=== PATIENT | female | born 1960 | race Caucasian/White ===

== ENCOUNTER 2019-02-13 15:30 | Emergency (ER) | payer MEDICARE, MEDICAID, SELFPAY ==
[2019-02-13 15:36] VITALS: BP 129/75; PULSE 100; RESP 16; TEMP 37.3; O2SAT 99; BMI 24.7
--- NOTE | 2019-02-13 15:42 | DI.RAD.S_ITS ---
PROCEDURE: XR HAND RT MIN 3V INDICATIONS: pain and swelling right hand. Pin in third digit TECHNIQUE: 3 views of the hand(s) acquired. COMPARISON: None. FINDINGS: Bones: Surgical pin traversing the third distal interphalangeal joint is seen with near complete bony fusion at the joint. Osteoarthritic changes are noted throughout right hand and wrist. No gross acute fracture or dislocation. No gross hardware loosening or failure. No gross bony erosive changes. Carpal bones are normally aligned. No suspicious bony lesions. Soft tissues: No suspicious soft tissue calcifications. IMPRESSION: Prior fusion of the third DIP joint. No gross hardware complication. Moderate osteoarthritic changes throughout right hand and wrist. No gross bony erosive changes. No gross acute fracture or dislocation. Dictated by: John Araujo M.D. on 02/13/2019 at 16:02 Approved by: John Araujo M.D. on 02/13/2019 at 16:03
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
[2019-02-13 18:30] VITALS: BP 122/87; PULSE 83; RESP 18; O2SAT 100
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
== END 2019-02-13 18:41 | disposition home or self-care (01) ==
PROVIDERS: Emergency Provider Nurse Practitioner Family
DX: L03.011 Cellulitis of right finger (principal)
CPT/HCPCS: 73130; 99282; 99283

== ENCOUNTER 2019-04-20 20:15 | Emergency (ER) | payer MEDICARE, MEDICAID, SELFPAY ==
[2019-04-20 20:19] VITALS: BP 141/88; PULSE 99; RESP 20; TEMP 36.6; O2SAT 99
--- NOTE | 2019-04-20 21:49 | ED.BACK ---
HPI - Back Pain/Injury General Chief Complaint: Back Pain/Injury Stated Complaint: LOWER BACK PAIN Time Seen by Provider: 04/20/19 21:23 Source: patient Mode of arrival: Ambulatory Limitations: no limitations History of Present Illness HPI Narrative: 58-year-old female here for evaluation of left-sided lower back pain with sciatic. She states that the symptoms have been going on for 8 months now. She has been taking Tylenol and ibuprofen. She has seen her primary doctor. Has had an MRI however has not seen a autism motor specialist up to this point. She is in the area visiting her family. She states that she has pain every day but that the pain sometimes spikes and that is what is happening today. She is unsure where to go next. States that her primary doctor has been unwilling to provide any referral to see a specialist. Related Data Previous Rx's Medication Instructions Recorded hydrocodone-acetaminophen [[place]] 1 tab PO Q6H PRN #10 tab 04/20/19 meloxicam [Mobic] 7.5 mg PO DAILY PRN #30 tab 04/20/19 prednisone 40 mg PO DAILY 7 Days #14 tab 04/20/19 Allergies Allergy/AdvReac Type Severity Reaction Status Date / Time Sulfa (Sulfonamide Allergy Severe Hives Verified 02/13/19 15:42 Antibiotics) Review of Systems Constitutional Constitutional: Denies fever(s) and Denies headache(s) ENT Ears, Nose, Mouth, and Throat: Denies headache(s) Cardiovascular Cardiovascular: Denies chest pain and Denies dyspnea Respiratory Respiratory: Denies cough and Denies dyspnea Gastrointestinal Gastrointestinal: Denies abdominal pain, Denies nausea and Denies vomiting Genitourinary Genitourinary: Denies urinary frequency, Denies difficulty voiding, Denies dysuria, Denies urinary incontinence, Denies urinary hesitancy and Denies urinary urgency Musculoskeletal Musculoskeletal: Reports back pain, Denies myalgias, Denies arthralgias, Reports numbness and Reports tingling Integumentary/Breasts Skin/Breast: Denies lesions and Denies rash Neurologic Neurologic: Denies behavioral changes, Denies headache(s), Reports numbness, Reports tingling and Reports paresthesias Psychiatric Psychiatric: Denies behavioral changes Hematologic/Lymphatic Hematologic/Lymphatic: Denies easy bleeding and Denies easy bruising [facility] Medical History Chronic low back pain (Inactive) Surgical History (Updated 02/13/19 @ 18:30 by ERROL Kilpatrick) History of hand surgery (Acute) Social History Smoking Status: Current every day smoker Social History Smoking Status: Current every day smoker Exam Initial Vital Signs Initial Vital Signs: Vital Signs Temperature 97.8 F 04/20/19 20:19 Pulse Rate 99 H 04/20/19 20:19 Respiratory Rate 20 04/20/19 20:19 Blood Pressure 141/88 H 04/20/19 20:19 Pulse Oximetry 99 04/20/19 20:19 HENMT Head: normal to inspection and normocephalic Resp Effort & Inspection: normal respiratory effort Cardio Rate: regular rate Skin Lesions: no lesions Rashes: no rashes Neuro General: alert and awake Cognition: normal cognition Speech: speech normal Extrem General: normal to inspection Psych Appearance: grossly normal and well kempt Course Orders Ordered: Discontinued Medications Hydromorphone HCl (Dilaudid) 1 mg IM NOW ONE Stop: 04/20/19 21:49 Last Admin: 04/20/19 21:59 Dose: 1 mg Documented by: NARESH Ketorolac Tromethamine (Toradol) 30 mg IM NOW ONE Stop: 04/20/19 21:49 Last Admin: 04/20/19 21:58 Dose: 30 mg Documented by: NARESH Vital Signs Vital signs: Vital Signs - 8 hr 04/20/19 20:19 04/20/19 22:25 Temperature 97.8 F Pulse Rate 99 H 101 H Respiratory Rate 20 18 Blood Pressure 141/88 H 157/100 H Pulse Oximetry 99 94 MDM - Back Pain/Injury MDM Narrative Medical decision making narrative: Low suspicion for cauda equina. Symptoms been going on for the past 8 months. Low suspicion for fractures. Has had an MRI prior to this. No indication for radiologic studies here in the ER. Will send home with symptom treatment. She was given the phone number for local Orthopedic group. Informed her that she may need to have a referral before they can see her. We discussed return precautions and follow-up instructions. She expressed understanding and agreement with plan. Discharge Plan Departure Patient Disposition: Home Clinical Impression: Chronic low back pain Qualifiers: Back pain laterality: left Sciatica presence: with sciatica Sciatica laterality: sciatica of left side Qualified Code(s): M54.42 - Lumbago with sciatica, left side Discharge Date/Time: 04/20/19 22:26 Instructions: Back Pain (Alternative Therapy), DI for Back Pain With Sciatica, Activity May Be Better then Rest for Low Back Pain Recovery Activity Restrictions/Additional Instructions: Recommend you contact your primary care provider for a follow up to discuss further referals. You can contact the [facility] at [phone]. Take the medications as directed. Return to the ER for any new or worsening symptoms. Prescriptions: New meloxicam [Mobic] 7.5 mg tablet 7.5 mg PO DAILY PRN (Reason: pain (scale score 1-3)) Qty: 30 RF: 0 prednisone 20 mg tablet 40 mg PO DAILY 7 Days Qty: 14 RF: 0 hydrocodone-acetaminophen [[place]] 5-325 mg tablet 1 tab PO Q6H PRN (Reason: pain) Qty: 10 RF: 0
[2019-04-20] MEDS: KETOROLAC 60 MG/2 ML VIAL 30 MG IM (21:58)
[2019-04-20] MEDS: HYDROMORPHONE 1 MG INJ IM (21:59)
[2019-04-20 22:25] VITALS: BP 157/100; PULSE 101; RESP 18; O2SAT 94
== END 2019-04-20 22:26 | disposition home or self-care (01) ==
PROVIDERS: Emergency Provider Emergency Medicine
DX: M54.42 Lumbago with sciatica, left side (principal)
CPT/HCPCS: 96372; 99282; 99283; J1170; J1885

== ENCOUNTER 2019-05-26 12:52 | Emergency (ER) | payer MEDICARE, MEDICAID, SELFPAY ==
[2019-05-26 13:02] VITALS: BP 156/86; PULSE 95; RESP 16; TEMP 36.7; O2SAT 100; BMI 25.7
--- NOTE | 2019-05-26 13:29 | ED.BACK ---
HPI - Back Pain/Injury <DALE CaryP - Last Filed: 05/26/19 15:50> General Chief Complaint: Back Pain/Injury Stated Complaint: back pain Time Seen by Provider: 05/26/19 12:59 Source: patient Mode of arrival: Ambulatory Limitations: no limitations History of Present Illness HPI Narrative: This is a 58-year-old female, smoker, who presents to ED with recurring low back pain radiate is to left lower back down to posterior knee. Patient denies fever, chills, nausea, vomiting, rash, saddle anesthesia, incontinence, weakness to lower legs. Patient has been ambulating with leaning forward stature due to severe pain. Patient has diagnosed with degenerative joint disease in her back for about 9 months but having severe recurring pain for last few days. Patient is waiting to be seen by public information specialist at this time. She had MRI test done in the past. Patient states in the past prednisone worked very well for her for similar pain. Patient has been using Tylenol and ibuprofen at home to cope with pain. Patient denies any urinary symptoms or hematuria. Related Data Previous Rx's Medication Instructions Recorded hydrocodone-acetaminophen [[place]] 1 tab PO Q6H PRN #10 tab 04/20/19 meloxicam [Mobic] 7.5 mg PO DAILY PRN #30 tab 04/20/19 lidocaine 1 patch TOP DAILY #15 each 05/26/19 prednisone 40 mg PO DAILY 5 Days tab 05/26/19 Allergies Allergy/AdvReac Type Severity Reaction Status Date / Time Sulfa (Sulfonamide Allergy Severe Hives Verified 05/26/19 13:02 Antibiotics) Review of Systems <GONZÁLEZ Cary - Last Filed: 05/26/19 15:50> Review of Systems Narrative: General: Denies fever, chills, fatigue, malaise, sweats. HEENT: Denies sinus pain, ear pain, sore throat, difficulty swallowing, dizziness. Respiratory: Denies dyspnea, cough, wheezing, hemoptysis, sputum. Cardiovascular: Denies chest pain, palpitations, orthopnea, edema. Gastrointestinal: Denies nausea, vomiting, abdominal pain, diarrhea, constipation, melena. : Denies dysuria, frequency, incontinence, hematuria, urinary retention. Musculoskeletal: See HPI Skin: Denies rash, skin lesions, or other. Neurologic: Denies weakness, headache, numbness, change in speech, confusion, seizures, incoordination. Psychiatric: No concerning psychosocial issues. 12-point review of systems is negative except for those stated above. Patient History <GONZÁLEZ Cary - Last Filed: 05/26/19 15:50> Medical History Chronic low back pain (Inactive) Surgical History History of hand surgery (Acute) Social History Smoking Status: Current every day smoker Substance Use Type: marijuana Exam <GONZÁLEZ Cary - Last Filed: 05/26/19 15:50> Narrative Exam Narrative: General appearance: well developed, well nourished, in no acute distress. Head: normocephalic, atraumatic, no scalp lesions, non-tender. Eye: pupil equal, round. EOMI. Nose: nares patent. Oral: mucosa moist. Neck/Thyroid: neck supple, full range of motion, no visible masses. Skin: no suspicious rashes, lesions over visible areas. Warm and dry. Heart: no clubbing, no cyanosis, no edema. Lungs: Breathing even and unlabored. No stridor. No accessory muscles used. Chest: normal shape and expansion. Abdomen: non-obese, non-distended. Neurologic: alert and oriented. Cognitive exam, SECURITIES RESEARCH ANALYST and PNS grossly intact on informal exam. Psych: good eye contact, normal affect. Initial Vital Signs Initial Vital Signs: Vital Signs Temperature 98.0 F 05/26/19 13:02 Pulse Rate 95 H 05/26/19 13:02 Respiratory Rate 16 05/26/19 13:02 Blood Pressure 156/86 H 05/26/19 13:02 Pulse Oximetry 100 05/26/19 13:02 Back/Spine/Pelvis Sacroiliac Joints: tender to palpation, No pain elicited by compression of iliac crest maneuver and No pain elicited by passive hyperextension of lower extremity Sacrum: no ecchymosis, no erythema, no swelling and tenderness Coccyx: no swelling and no tenderness <Aguilar Petit DO - Last Filed: 05/26/19 16:14> Initial Vital Signs Initial Vital Signs: Vital Signs Temperature 98.0 F 05/26/19 13:02 Pulse Rate 95 H 05/26/19 13:02 Respiratory Rate 16 05/26/19 13:02 Blood Pressure 156/86 H 05/26/19 13:02 Pulse Oximetry 100 05/26/19 13:02 Course <GONZÁLEZ Cary - Last Filed: 05/26/19 15:50> Orders Ordered: Discontinued Medications Ketorolac Tromethamine (Toradol) 30 mg IM NOW ONE Stop: 05/26/19 13:26 Last Admin: 05/26/19 13:31 Dose: 30 mg Documented by: ERMIAS Lidocaine (Lidoderm) 1 each TOP NOW ONE Stop: 05/26/19 13:26 Last Admin: 05/26/19 13:33 Dose: 1 each Documented by: ERMIAS Prednisone (Deltasone) 40 mg PO NOW ONE Stop: 05/26/19 13:26 Last Admin: 05/26/19 13:32 Dose: 40 mg Documented by: ERIMAS Vital Signs Vital signs: Vital Signs - 8 hr 05/26/19 13:02 05/26/19 14:06 Temperature 98.0 F Pulse Rate 95 H 68 Respiratory Rate 16 18 Blood Pressure 156/86 H Blood Pressure [Left Arm] 161/81 H Pulse Oximetry 100 97 <Aguilar Petit DO - Last Filed: 05/26/19 16:14> Orders Ordered: Discontinued Medications Ketorolac Tromethamine (Toradol) 30 mg IM NOW ONE Stop: 05/26/19 13:26 Last Admin: 05/26/19 13:31 Dose: 30 mg Documented by: ERMIAS Lidocaine (Lidoderm) 1 each TOP NOW ONE Stop: 05/26/19 13:26 Last Admin: 05/26/19 13:33 Dose: 1 each Documented by: ERMIAS Prednisone (Deltasone) 40 mg PO NOW ONE Stop: 05/26/19 13:26 Last Admin: 05/26/19 13:32 Dose: 40 mg Documented by: ERMIAS Vital Signs Vital signs: Vital Signs - 8 hr 05/26/19 13:02 05/26/19 14:06 Temperature 98.0 F Pulse Rate 95 H 68 Respiratory Rate 16 18 Blood Pressure 156/86 H Blood Pressure [Left Arm] 161/81 H Pulse Oximetry 100 97 MDM - Back Pain/Injury <DALE CaryP - Last Filed: 05/26/19 15:50> Differential Diagnosis Differential diagnosis: Likely sciatica Medical Records Attestation: I reviewed the patient's medical records. Lab Data Attestation: I reviewed the patient's lab results. Labs: Urine Dip Bedside Urine Glucose Negative Bedside Urine Bilirubin - Negative Bedside Urine Ketone - Negative Urine Specific Clear 1.010 Bedside Urine Occult Blood - Negative Bedside Urine pH 7.0 Bedside Urine Protein - Negative Bedside Urine Urobilinogen - Negative Bedside Urine Nitrite - Negative Bedside Urine Leukocytes - Negative Esterase MDM Narrative Medical decision making narrative: This is a 58-year-old female presents to ED with chronic sciatica pain on her left low back with increasing pain for last several days. Patient has tried Tylenol and Motrin at home without much relief. Bilateral leg strength and sensation are equally intact. No bowel or bladder incontinence problems. No rashes noted on affected side. Patient does not have constitutional symptoms. Urine test does not indicate infection. Patient was medicated with IM Toradol, lidocaine patch and prednisone in ED. Patient reports pain has improved after the medications and discharged to home with lidocaine patch and prednisone for 5 days. Patient advised to follow up with a public information specialist as scheduled. Return precautions were discussed patient and patient verbalized understanding and agrees with the treatment plan. <Aguilar Petit DO - Last Filed: 05/26/19 16:14> Lab Data Labs: Urine Dip Bedside Urine Glucose Negative Bedside Urine Bilirubin - Negative Bedside Urine Ketone - Negative Urine Specific Clear 1.010 Bedside Urine Occult Blood - Negative Bedside Urine pH 7.0 Bedside Urine Protein - Negative Bedside Urine Urobilinogen - Negative Bedside Urine Nitrite - Negative Bedside Urine Leukocytes - Negative Esterase Discharge Plan Departure Patient Disposition: Home Clinical Impression: Sciatica Qualifiers: Laterality: left Qualified Code(s): M54.32 - Sciatica, left side Discharge Date/Time: 05/26/19 14:36 Instructions: DI for Sciatica Activity Restrictions/Additional Instructions: You have been diagnosed with [sciatica. You were treated with prednisone, Ketolac injection and Lidocaine patch in ED for your back pain.]. What to do: *Take your medications as directed. Please continue to take prednisone for next 5 days once a day. You can continue to take Tylenol up to 4000 mg in 24 hr period and Ibuprofen 400-600 mg three times a day with food for pain. Lidocaine patch stays on for 12 and off for 12 hours for pain. Try to take prednisone during day to avoid interfering with sleep and take it with food. *Follow up with your primary care provider in 2-3 days at [facility], call for an appointment. Please keep your appointment with public information specialist as scheduled. Let them know you were seen in the ED and that we asked you to be seen in follow up. *Return to ED if you have any new, worsening, or concerning symptoms, such as [fever, rash on the back, chest pain, breathing difficulty, unable to tolerate fluids, incontinence, weakness to her legs, numbness to her groin or any acute concerns]. Prescriptions: New lidocaine 5 % adhesive patch,medicated 1 patch TOP DAILY Qty: 15 RF: 0 prednisone 20 mg tablet 40 mg PO DAILY 5 Days RF: 0 No Action meloxicam [Mobic] 7.5 mg tablet 7.5 mg PO DAILY PRN (Reason: pain (scale score 1-3)) Qty: 30 RF: 0 hydrocodone-acetaminophen [[place]] 5-325 mg tablet 1 tab PO Q6H PRN (Reason: pain) Qty: 10 RF: 0 <Aguilar Petit, DO - Last Filed: 05/26/19 16:14> Sign Out Provider Sign Out Attestation: Dr Petit Co-Sign Statement: I was available for consultation during this patient's emergency department visit. This chart is signed by myself for administrative purposes only. I did not have direct contact with this patient during this visit. They were seen independently by the APC.
[2019-05-26] MEDS: KETOROLAC 60 MG/2 ML VIAL 30 MG IM (13:31)
[2019-05-26] MEDS: predniSONE 20 MG TABLET 40 MG PO (13:32)
[2019-05-26] MEDS: LIDOCAINE PATCH 1 EACH ADH..PATCH TOP (13:33)
[2019-05-26 14:06] VITALS: BP 161/81; PULSE 68; RESP 18; O2SAT 97
== END 2019-05-26 14:36 | disposition home or self-care (01) ==
PROVIDERS: Emergency Provider Nurse Practitioner Family
DX: M54.32 Sciatica, left side (principal)
CPT/HCPCS: 81003; 96372; 99282; 99283; J1885

== ENCOUNTER 2019-07-31 16:53 | Emergency (ER) | payer MEDICARE, MEDICAID, SELFPAY ==
[2019-07-31 17:27] VITALS: BP 145/93; PULSE 92; RESP 22; TEMP 36.6; O2SAT 98; BMI 25.6
[2019-07-31 19:36] VITALS: BP 132/89; PULSE 78; RESP 15; O2SAT 97
[2019-07-31] MEDS: LIDOCAINE PATCH 1 EACH ADH..PATCH TOP (19:57)
[2019-07-31] MEDS: predniSONE 20 MG TABLET 40 MG PO (19:57)
[2019-07-31] MEDS: KETOROLAC 60 MG/2 ML VIAL 30 MG IM (19:57)
[2019-07-31] MEDS: HYDROCODONE/ACET 5/325 TABLET 2 TAB PO (20:44)
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
[2019-07-31] MEDS: HYDROCODONE/ACET 5/325 PREPACK 1 BOTTLE MISC (21:29)
[2019-07-31 21:34] VITALS: BP 129/71; PULSE 77; RESP 16; O2SAT 96
== END 2019-07-31 21:34 | disposition home or self-care (01) ==
PROVIDERS: Emergency Provider Nurse Practitioner Family; PCP Family Medicine
DX: M54.42 Lumbago with sciatica, left side (principal); M54.41 Lumbago with sciatica, right side
CPT/HCPCS: 96372; 99283; J1885

== ENCOUNTER → 2019-08-19 10:51 | Outpatient (CLI) | payer MEDICARE, MEDICAID, SELFPAY ==
--- NOTE | 2019-08-19 10:54 | DI.RAD.S_ITS ---
PROCEDURE: XR LUMBAR SPINE 6V W BENDING INDICATIONS: Progressive low back pain and coccydynia TECHNIQUE: 6 views of the lumbar spine acquired. COMPARISON: [facility], CT, CT ABD PELVIS W CON, 07/24/2016, 11:48. Outside Facility, RG, XR L-SPINE 4-6V, 04/07/2018, 18:40. FINDINGS: Bones: 5 nonrib-bearing vertebrae are present. There is mild levoscoliotic bony alignment. No vertebral body compression fractures. No suspicious bony lesions. Chronic moderate degenerative changes have slightly progressed from 2018. Soft tissues: Overlying bowel gas pattern is normal. No suspicious soft tissue calcifications. Flexion/extension: There is normal range of motion, with preserved normal alignment. IMPRESSION: No trauma. Moderate degenerative changes that have only slightly worsened from 2018. Dictated by: Chuy Metcalf M.D. on 08/19/2019 at 13:38 Approved by: Chuy Metcalf M.D. on 08/20/2019 at 12:13
== END ==
PROVIDERS: PCP Family Medicine; Visit Provider Physical Medicine & Rehabilitation
DX: M54.5 Low back pain (principal); M53.3 Sacrococcygeal disorders, not elsewhere classified; M47.27 Other spondylosis with radiculopathy, lumbosacral region; M48.061 Spinal stenosis, lumbar region without neurogenic claudication; F32.9 Major depressive disorder, single episode, unspecified; Z87.828 Personal history of other (healed) physical injury and trauma
CPT/HCPCS: 72114; 99213

== ENCOUNTER 2019-09-03 15:21 | Inpatient (IN) | payer MEDICARE, MEDICAID, SELFPAY ==
[2019-09-03 15:26] VITALS: BP 148/89; PULSE 106; RESP 18; TEMP 36.7; O2SAT 98; BMI 28.3
--- NOTE | 2019-09-03 15:45 | DI.RAD.S_ITS ---
PROCEDURE: XR FINGER RT MIN 2V INDICATIONS: 3rd finger abscess draining, hx surgery with pins TECHNIQUE: AP hand, 2 views of the third finger(s) acquired. COMPARISON: [facility], CR, XR HAND RT MIN 3V, 02/13/2019, 15:43. FINDINGS: Bones: Metallic orthopedic pin noted in the third distal and middle phalanges placed for third DIP joint fusion.. There is slight lucency adjacent to the metallic orthopedic pin in the distal phalange in the proximal aspect of the middle phalange most compatible with osteomyelitis. Soft tissues: No suspicious soft tissue calcifications. Soft tissue swelling of the third digit compatible with reported infectious cellulitis. IMPRESSION: Third distal and middle phalange osteomyelitis. Dictated by: Angelique Germain MD, PhD on 09/03/2019 at 16:06 Approved by: Angelique Germain MD, PhD on 09/03/2019 at 16:08
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
[2019-09-03] MEDS: ONDANSETRON 4 MG/2 ML INJ IV (16:45)
[2019-09-03] MEDS: SODIUM CHLORIDE 0.9% 1,000 ML 1000 ML IV (16:46)
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
[2019-09-03] MEDS: CEFTRIAXONE 2 GM/50 ML FROZ.PIGGY IV (17:24)
[2019-09-03 17:25] LABS: Add Manual Diff / Slide Review NO; Basophils Absolute Auto 0 /uL (0-100); Basophils Percent Auto 0.7 % (0-2); Eosinophils Absolute Auto 300 /uL (0-450); Hematocrit 37.2 % (36-46); Hemoglobin 12.5 g/dL (12.0-16.0); Lymphocytes Absolute Auto 2400 /uL (1100-4500); Lymphocytes Percent Auto 36.4 % (25-40); Mean Corpuscular HGB Conc 33.7 % (30-36); Monocytes Absolute Auto 400 /uL (0-900); Monocytes Percent Auto 6.4 % (3-14); Neutrophils Absolute Auto 3500 /uL (1500-7000); Neutrophils Percent Auto 52.5 % (50-75); Platelet Count 182 X10^3/uL (150-400); Red Blood Cell Count 4.33 X10^6/uL (4.0-5.2); Red Cell Distribution Width 15.7 % (11.6-14.8); White Blood Cell Count 6.7 X10^3/uL (4.5-11.0)
[2019-09-03 17:42] LABS: BUN Creatinine Ratio 18.9 (6-22); Blood Urea Nitrogen 17 mg/dL (7-17); C-Reactive Protein Quant < 0.5 mg/dL (<1.0); Calcium 9.3 mg/dL (8.4-10.2); Carbon Dioxide 22 mmol/L (22-32); Chloride 109 mmol/L (98-107); Estimated Glomerular Filt Rate > 60.0 mL/min (>60); Glucose 96 mg/dL (80-110); HEMOLYSIS 35 (0-50); Potassium 4.2 mmol/L (3.4-5.1); Sodium 140 mmol/L (137-145)
[2019-09-03 17:48] LABS: Erythrocyte Sedimentation Rate 21 MM/HR (0-20)
[2019-09-03 17:51] VITALS: BP 133/79; PULSE 76; RESP 16; O2SAT 99
[2019-09-03 18:15] VITALS: BP 148/90; PULSE 84; RESP 16; TEMP 37.1; O2SAT 97
[2019-09-03 19:07] VITALS: BMI 28.3
[2019-09-03] MEDS: HYDROCODONE/ACET 5/325 TABLET 2 TAB PO (19:30)
[2019-09-03] MEDS: LORazepam 0.5 MG TABLET PO (19:34)
[2019-09-03 20:15] VITALS: BP 110/57; PULSE 81; RESP 17; TEMP 36.4; O2SAT 98
[2019-09-03] MEDS: PREGABALIN 75 MG CAPSULE 300 MG PO (20:31)
[2019-09-03] MEDS: VANCOMYCIN 1,000 MG/200 ML PIGGYBACK 200 MG IV (20:32)
[2019-09-03] MEDS: DOCUSATE 100 MG CAPSULE PO (20:32)
[2019-09-03] MEDS: LACTATED RINGERS 1,000 ML 125 ML IV (20:33)
[2019-09-04] VITALS (21 sets, daily range): BP systolic 115–203; BP diastolic 52–109; PULSE 63–89; RESP 10–19; TEMP 35.8–37.1; O2SAT 93–994
--- NOTE | 2019-09-04 | DI.RAD.S_ITS ---
PROCEDURE: XR HAND RT 2V INDICATIONS: PIN REMOVAL THIRD DIGIT. TECHNIQUE: 2 views of the hand(s) acquired. COMPARISON: [facility], CR, XR FINGER RT MIN 2V, 09/03/2019, 15:49. FINDINGS: Bones: No fractures or dislocations. Carpal bones are normally aligned. Orthopedic pin in the third distal and middle phalanges has been removed. Lucency involving the third distal middle phalanges compatible osteomyelitis is stable compared to 09/03/2019. Soft tissues: No suspicious soft tissue calcifications. IMPRESSION: Status post removal of orthopedic pin from third digit. Dictated by: Angelique Germain MD, PhD on 09/04/2019 at 15:30 Approved by: Angelique Germain MD, PhD on 09/04/2019 at 15:31
[2019-09-04] MEDS: HYDROCODONE/ACET 5/325 TABLET 2 TAB PO (04:18)
[2019-09-04] MEDS: PANTOPRAZOLE 20 MG TABLET PO (05:55)
[2019-09-04] MEDS: LACTATED RINGERS 1,000 ML 125 ML IV ×2 (06:34→16:11)
--- NOTE | 2019-09-04 06:36 | PC.NURSE ---
Shift note: Patient appears to have intervals between resting comfortably and sobbing tearfully, especially with the transfer to the bathroom. Patient reports on going chronic severe back pain that I need surgery for and I'm supposed to be having an injection on the that the doctor says won't work. On hourly patient checks, patient turns herself in bed frequently and during physical assessment had a difficult time stay awake to participate. Patient missed the hat with her am void, reeducated on the need to measure output and repositioned the hat to be more effective. Patient acknowledges teaching. AxOx3, able to make needs known, uses call light appropriately, is a moderate fall risk (updated from low fall risk) due to weakness with ambulation, bed alarm on and functioning, call light in reach.
[2019-09-04] MEDS: DULOXETINE 20 MG CAPSULE PO (07:36)
[2019-09-04] MEDS: LORazepam 0.5 MG TABLET PO ×3 (07:36→22:39)
[2019-09-04] MEDS: PREGABALIN 75 MG CAPSULE 300 MG PO ×3 (07:36→21:37)
[2019-09-04] MEDS: VANCOMYCIN 1,000 MG/200 ML PIGGYBACK 200 MG IV ×2 (07:44→21:13)
--- NOTE | 2019-09-04 08:50 | PM.PN.1 ---
Subjective Subjective Date Patient Seen: 09/04/19 Time Patient Seen: 08:50 Interval history: Her finger is aching, primary pain is really her chronic low back pain Exam Vital Signs (past 8 hours): - 09/04/19 04:40 09/04/19 07:34 Temperature 98.2 F 97.5 F L Pulse Rate 75 70 Respiratory Rate 18 14 Blood Pressure 117/73 129/73 Pulse Oximetry 96 98 Oxygen Delivery Method Room Air Oxygen Flow Rate 0 Const Orientation: alert and oriented x3 Extrem Other: Mild drainage on dressing over tip of right middle finger. Able to move finger back and forth. Intact sensation finger Objective Labs Result Diagrams: 09/03/19 17:17 09/03/19 17:17 Labs: Laboratory Results - last 24 hr 09/03/19 09/03/19 17:17 17:17 WBC 6.7 RBC 4.33 Hgb 12.5 Hct 37.2 MCV 86.0 MCH 29.0 MCHC 33.7 RDW 15.7 H Plt Count 182 Neut % (Auto) 52.5 Lymph % (Auto) 36.4 [place] % (Auto) 6.4 Eos % (Auto) 4.0 Baso % (Auto) 0.7 Neut # (Auto) 3500 Lymph # (Auto) 2400 [place] # (Auto) 400 Eos # (Auto) 300 Baso # (Auto) 0 ESR 21 H Sodium 140 Potassium 4.2 Chloride 109 H Carbon Dioxide 22 BUN 17 Creatinine 0.90 Estimated GFR > 60.0 BUN/Creatinine Ratio 18.9 Glucose 96 Calcium 9.3 C-Reactive Protein < 0.5 Assessment & Plan Assessment & Plan narrative: Right middle finger osteomyelitis. Plan today is for surgical removal of her old pin with irrigation and debridement of the infected finger. Then will need long-term IV antibiotics. Quality VTE Deep Vein Thrombosis/Pulmonary Embolism Present on Admission: No
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
[2019-09-04] MEDS: ASPIRIN EC 81 MG TABLET PO (13:01)
--- NOTE | 2019-09-04 13:43 | DI.RAD.S_ITS ---
PROCEDURE: XR CHEST FOR PICC 1V INDICATIONS: Picc placement COMPARISON: None. FINDINGS: PICC was placed by the intravenous therapy team from the left side. Fluoroscopic spot film demonstrates the tip of PICC projecting to the area of SVC right atrial junction. IMPRESSION: Tip of PICC projects to the area of SVC right atrial junction. Dictated by: Roberto Carlos Worthy M.D. on 09/04/2019 at 15:09 Approved by: Roberto Carlos Worthy M.D. on 09/04/2019 at 15:10
--- NOTE | 2019-09-04 14:05 | PM.PREOP ---
Pre-operative Note Interval Note History & Physical reviewed/Exam performed by Physician: Yes Changes to H&P: No
[2019-09-04] MEDS: LACTATED RINGERS 1,000 ML 42 ML IV (14:18)
--- NOTE | 2019-09-04 14:31 | CM.DANOTE ---
Discharge Planning/Care Management DCP: assessment: case received, EMR reviewed and discussed case in Team Rounds. Pt is a 59 year old female who admitted last evening of surgeon: Dr. Castle after first presenting to the ER. Admission status: INPT: confirmed by UR CONNER Barajas Payer: Medicare and Medicaid. PCP: listed on face sheet as Neftali Flannery: will confirm with pt. PT also sees Dr. Fine at pain clinic with last documented visit on 08/19/19. Went to room to meet with pt but CONNER Christie stated she was currently in surgery. Will plan to see her tomorrow to continue this assessment process. Dr. Castle's notes say pt will need 6 weeks of IV antibiotics as part of management of osteomyelitis in finger. It is unclear at this point what the antibiotic specifics will be. CONNER Christie does state that a PICC was placed just prior to pt going to surgery. Medicare will not pay for pt to have home infusion services but her Medicaid may cover this, dependent on type of medicaid plan. Brittni Paul was here to see another pt and he will take the current info back to his team so they can at least check to see what her Medicaid plan is.. Will follow up tomorrow and plan to check in with pt early in the morning. Discussion by team members in rounds indicated that pt may be staying with a daughter here in [place] but no infomation is documented re this and have no contact info re daughter. Will not be able to do more on this case until tomorrow. [facility].m. CM Discharge Assessment Start: 09/04/19 14:30 Freq: Status: Active Protocol: Document 09/04/19 14:30 ITV (Rec: 09/04/19 14:31 ITV [id number]) Discharge Planning Assessment Advance Directives? No History Provided By Medical Record Prior Living Arrangements Apartment/Condo Household Members significant other Is patient alert and oriented? Yes Whiteboard Updated in Patient Room with Yes name and ext. # of Glass Science Engineer Review Status In Process
[2019-09-04] MEDS: BUPIVACAINE 0.5% (PF) VIAL 30 ML INJ (14:45)
[2019-09-04] MEDS: LIDOCAINE 1% 30 ML INJ (14:48)
--- NOTE | 2019-09-04 15:02 | PM.OP.1 ---
Operative Date/Time/Diagnoses Date of procedure: 09/04/19 Time of procedure: 15:02 Pre-op diagnosis: Osteomyelitis of right middle finger Retained hardware from previous right middle finger DIP fusion Post-op diagnosis: same Procedure & Clinicians Procedure: Irrigation and debridement with curettage of the bony osteomyelitis of the right middle finger Removal of hardware from previous DIP fusion of the right mid finger Same procedure as scheduled: Yes Indications: 59-year-old female with under old DIP fusion with a pin. She has had off and on draining but much more profound draining over the past few weeks. Her x-ray showed osteomyelitis. Was felt that the hardware needed to come out and the wound be debrided surgically to fight this infection. Risks and benefits of surgery discussed appropriate consents were obtained Surgeon: Tomas Castle Click Yes if Unassisted: Yes Anesthesia Type: General Operative Notes Findings: none Closure Type: primary Specimen(s): other (R finger culture) Estimated Blood Loss (mL): 5 Procedure in detail: Patient brought the operating room and intubated on the table. Attention was turned towards the well-marked right middle finger. She had been given her routine scheduled antibiotics already. The right arm was prepped and draped in standard sterile fashion. Time-out was performed. We 1st squeezed the finger and extruded a few drops of purulent material that was cultured. We made a 6 cm incision connecting her two draining holes on the tip of her finger. We sharply dissected down and just below the tip was an encapsulated white object. This was cleaned and the 10 was inside of this. We cleared off the tissue for approximately mm around this and then grabbed it with needle drivers and easily pulled the pin out. I then placed the 2nd culture swab down all the way inside the hole and sent that 1 for culture as well. I then placed a curette down the hole into the bone where she had an obvious void on x-ray. We curetted the hole all the way down through the middle phalanx with care to clear out all the soft tissue on the inside as well as to sharply debride the bone until it was clean. We then irrigated with an Angiocath hooked up to a syringe. An x-ray was taken to confirm all the hardware was out as well as that her fusion was still intact. Iodoorm gauze was packed down inside the hole and the skin was loosely reapproximated. Sterile dressing was placed. She was then extubated brought to recovery with no complications. Complications: none Post-operative Condition: stable Disposition: PACU Plan for aftercare: Inpatient for IV antibiotics. Plan to remove the gauze in 1-2 days. She will most likely require 6 weeks of IV antibiotics.
[2019-09-04] MEDS: OXYCODONE/ACETAMINOPHEN 5/325 TABLET 2 TAB PO ×2 (16:49→21:36)
[2019-09-04] MEDS: CEFTRIAXONE 2 GM/50 ML FROZ.PIGGY IV (17:47)
[2019-09-04] MEDS: DOCUSATE 100 MG CAPSULE PO (21:37)
--- NOTE | 2019-09-04 23:16 | PC.NURSE ---
A&Ox3, 97%RA. R. mid finger pain 3/10 and tolerable, mid finger is warm, radial pulse palpable. pt started crying when she arrived in AC unit. pt c/o back pain 10/10. Pt refused ativan, flexeril, lidocain patch,norco, and mobic. pt refused ice packs. pt states that those meds doesn't work on her. pt reports she smokes marijuana for her back pain. patient thinks that percocet might work for her. Notified , VTO for Percocet 1-2 tabs q4hr PRN. Per , if pt goes AMA, PICC must be removed, pt has a high risk of losing R.mid finger if she does not stay for her antibiotics. After her first dose of percocet, she fell asleep for 4 hours straight. pt woke up and became teary again. pt agreed to take ativan and percocet again. Bed mobility independent. pt reposition herself frequently. call ligth in reach. bed alarm active. pt voiding without difficulty.
[2019-09-05] VITALS (7 sets, daily range): BP systolic 112–164; BP diastolic 66–96; PULSE 76–101; RESP 16–20; TEMP 36.5–37.3; O2SAT 96–100
[2019-09-05] MEDS: PANTOPRAZOLE 20 MG TABLET PO (05:18)
[2019-09-05] MEDS: OXYCODONE/ACETAMINOPHEN 5/325 TABLET 2 TAB PO ×5 (05:18→23:37)
--- NOTE | 2019-09-05 07:57 | PM.PNPO.1 ---
Subjective Subjective Date Patient Seen: 09/05/19 Time Patient Seen: 07:57 Interval history: Her finger is throbbing, the block seems to have worn off. She almost left Against Medical Advice last night to go home and medicate her chronic low back pain, but we were able to give her some Percocet and keep that comfortable enough. Really the chronic low back pain is her main complaint at this point. Exam Vital Signs (past 8 hours): - 09/05/19 05:20 Temperature 97.9 F Pulse Rate 80 Respiratory Rate 19 Blood Pressure 112/66 Pulse Oximetry 96 Oxygen Delivery Method Room Air Oxygen Flow Rate 0 Const Orientation: alert and oriented x3 Extrem Other: Right middle finger dressing CDI Objective Labs Result Diagrams: 09/03/19 17:17 09/03/19 17:17 Assessment & Plan Post-op Postoperative Procedures: Procedures Operation Date: 09/04/19 14:45 Actual Procedures Side Surgeon p 3rd Finger pin removal I&D Right Tomas Castle MD stable after hardware removal and debridement of osteomyelitis of right middle finger. Patient is going to need 6 weeks of IV antibiotics. We are waiting to see if anything grows out of her cultures but nothing has grown so far from the ER or her surgical cultures. This point I am going to stop the vancomycin and just keep her on ceftriaxone for broad coverage. Plan to change her dressing and remove her packing tomorrow. Anticipate probable discharge tomorrow. Quality VTE Deep Vein Thrombosis/Pulmonary Embolism Present on Admission: No
[2019-09-05] MEDS: DULOXETINE 20 MG CAPSULE PO (08:08)
[2019-09-05] MEDS: MELOXICAM 7.5 MG TABLET 15 MG PO (08:08)
[2019-09-05] MEDS: SODIUM CHLORIDE 0.9% FLUSH 10 ML IV ×2 (08:13→21:30)
[2019-09-05] MEDS: DOCUSATE 100 MG CAPSULE PO ×2 (08:13→21:30)
[2019-09-05] MEDS: PREGABALIN 75 MG CAPSULE 300 MG PO ×3 (08:13→21:30)
[2019-09-05] MEDS: ASPIRIN EC 81 MG TABLET PO (08:13)
--- NOTE | 2019-09-05 08:46 | CM.DPC ---
Addendum entered by Chelsey Darling LPN 09/06/19 16:07: Met with Dr. Castle this this morning. He agreed that pt was not appropriate for a d/c to home until all was arranged at the infusion Center on Saturday. DCP team will follow. Original Note: DCP: continued: Received a vm from Humberto, [email or web address]. He noted that pt has a medicaid plan that does not include medical benefits and there is a spend down. She would not be eligible for home infusion services under her current insurance benefits. Spoke then with Dr. Castle, here to see pt and update this dept on plan. He anticipates pt will go home tomorrow on the IV Rocephin once a day and will go to the infusion clinic. If she goes tomorrow she would have her dose here first and then go to the clinic on Saturday. Met then with pt who says tearfully that she understands the plan and is agreeable to same. She clarifies her current living situation: She still has her home in [facility] but I am never there. She is focusing on her medical management and especially with her treatment at the pain clinic and is staying with her mother Judith Pollock at the [facility] in [place]. She states that her mother is not well. Asked about meals. She states they have access to cooking facilities at the [facility]. P: Will discuss the referral process in Team Rounds for the infusion/oncology center as they are closed [facility]. May need to keep pt until Saturday in order to insure a successful transition for the 6 week anticipated antibiotic course, especially in view of pt's marginal social situation. Would want to have a firm appt time set for her etc and none of that can be set up over the weekend.
--- NOTE | 2019-09-05 11:25 | PC.NURSE ---
Addendum entered by Shahnaz Levi R.N. 09/05/19 13:27: Printout on Duloxetine from Discharge education paperwork link printed for pt as she said this medication was new to her. Verbal education provided on medication as well as the printout. Original Note: Day Shift- Pt very teary, crying during conversation, states her back pain is 9/10, frustrated that she may not be able to get injection from Dr. Serra on the for her back. Support provided. Pt given prn Mobic and Ativan po at 0815. Pt stated she has had Fexiril and Mobic in the past and she hasn't noticed much of a difference. Agreeable to Mobic prn. Pt states at home she would be tearing and in pain as well and would smoke Marijuana daily for chronic back pain management. Pt also agreeable to having Lidocaine patch placed to lower back after she takes a shower today per her request. Pt wanted shower after 0920 prn Dose of Oxycoodne given. Upon reassessment by this RN and DICTAPHONE MECHANIC, pt asleep and will reassess for shower. Right middle finger gauze and coban wrap dressing CDI, scant drainage to distal end of dressing. edema extending from finger distal to dorsal hand and fingers/thumb, more than yesterday. Encouraged pt to elevate right hand on pillows above heart and place ice pack on intermittently. Bed alarm on, call light within reach.
[2019-09-05] MEDS: LIDOCAINE PATCH 1 EACH ADH..PATCH TOP (15:51)
[2019-09-05] MEDS: CEFTRIAXONE 2 GM/50 ML FROZ.PIGGY IV (16:49)
[2019-09-06] VITALS (8 sets, daily range): BP systolic 113–189; BP diastolic 58–110; PULSE 71–88; RESP 16–21; TEMP 36.2–37.1; O2SAT 94–99
--- NOTE | 2019-09-06 02:33 | PC.NURSE ---
Addendum entered by Shnanan Burns R.N. 09/06/19 05:18: Has slept most of shift. States pain this morning is again 8/10 in coccyx/lower back and 6/10 in right hand/finger so medicated with Percocet. Encouraged to keep hand elevated on pillows. Original Note: Patient seen and assessed at 2345. Is alert and oriented. Breath sounds CTA with RA sat of 100%. HRR. Consistently elevated BP and is currently 152/90. Denies nausea. BT hypoactive but is passing flatus. Has not had a BM since 09/02 and has been receiving Colace and did drink prune juice previous shift. Voiding on toilet; denies dysuria, frequency or urgency. Moves self in bed and SBA when out of bed for safety. Agreeable to having SCD's applied after education re: DVT prevention. Dressing to right 3rd finger is CDI; mild swelling noted but has good CMS. Complains of 8/10 chronic back (coccyx) pain and 8/10 right hand pain so medicated with Percocet, ice applied and encouraged to keep hand elevated on pillows. Fall risk score is moderate; bed alarm on for safety
[2019-09-06] MEDS: OXYCODONE/ACETAMINOPHEN 5/325 TABLET 2 TAB PO (05:08)
[2019-09-06] MEDS: PANTOPRAZOLE 20 MG TABLET PO (05:53)
--- NOTE | 2019-09-06 08:40 | PM.PNPO.1 ---
Subjective Subjective Date Patient Seen: 09/06/19 Time Patient Seen: 08:46 Interval history: Finger throbs but fairly tolerable. Taking pain medication for her chronic low back pain. Exam Vital Signs (past 8 hours): - 09/06/19 05:15 Temperature 97.3 F L Pulse Rate 75 Respiratory Rate 16 Blood Pressure 113/58 L Pulse Oximetry 97 Oxygen Delivery Method Room Air Oxygen Flow Rate 0 Const Orientation: alert and oriented x3 Extrem Other: Right hand dressing change packing removed. No purulence or erythema. Dressing we wrapped Objective Labs Result Diagrams: 09/03/19 17:17 09/03/19 17:17 Assessment & Plan Post-op Postoperative Procedures: Procedures Operation Date: 09/04/19 14:45 Actual Procedures Side Surgeon p 3rd Finger pin removal I&D Right Tomas Castle MD finger looks better. We are getting her set up for IV antibiotics, most likely discharge tomorrow for outpatient antibiotics. Quality VTE Deep Vein Thrombosis/Pulmonary Embolism Present on Admission: No
[2019-09-06] MEDS: PREGABALIN 75 MG CAPSULE 300 MG PO ×3 (09:00→20:46)
[2019-09-06] MEDS: DULOXETINE 20 MG CAPSULE PO (09:00)
[2019-09-06] MEDS: DOCUSATE 100 MG CAPSULE PO ×2 (09:00→20:46)
[2019-09-06] MEDS: ASPIRIN EC 81 MG TABLET PO (09:00)
[2019-09-06] MEDS: OXYCODONE/ACETAMINOPHEN 5/325 TABLET 1 TAB PO ×4 (09:00→20:46)
--- NOTE | 2019-09-06 10:25 | PC.NURSE ---
Addendum entered by Modesto Crespo R.N. 09/06/19 14:58: Pt medicated per orders for pain, more for her back than her finger. Have been getting Pt up out of bed and moving to help with stiffness and pain. Original Note: Pt a&o,follows commands, discusses concerns. Dr. Castle in to change dressing and remove packing. Pt tearful and uncomfortable. More to do with back issues then her finger. Meds given, Pt repositioned, warm blankets applied. Pt presently right side lying, RR even and unlaboured.
[2019-09-06] MEDS: SODIUM CHLORIDE 0.9% FLUSH 10 ML IV ×3 (13:10→20:46)
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
[2019-09-06] MEDS: CEFTRIAXONE 2 GM/50 ML FROZ.PIGGY IV (17:22)
[2019-09-07] MEDS: OXYCODONE/ACETAMINOPHEN 5/325 TABLET 1 TAB PO ×4 (00:43→13:29)
[2019-09-07 03:50] VITALS: BP 114/60; PULSE 70; RESP 16; TEMP 36.9; O2SAT 96
[2019-09-07] MEDS: PANTOPRAZOLE 20 MG TABLET PO (06:12)
[2019-09-07] MEDS: SODIUM CHLORIDE 0.9% FLUSH 10 ML IV ×4 (06:12→13:29)
--- NOTE | 2019-09-07 06:25 | PC.NURSE ---
Requested Lidocaine Patch, but changed her mind. States I'll just put that on later this morning after I take a shower. Lido patch place in her Nurse websphere process server developer. Will notify day RN.
--- NOTE | 2019-09-07 07:41 | PM.PNPO.1 ---
Subjective Subjective Date Patient Seen: 09/07/19 Time Patient Seen: 07:41 Interval history: Finger throbs but tolerable Exam Vital Signs (past 8 hours): - 09/06/19 23:45 09/07/19 03:50 Temperature 98.2 F 98.4 F Pulse Rate 71 70 Respiratory Rate 16 16 Blood Pressure 125/64 114/60 Pulse Oximetry 96 96 Oxygen Delivery Method Room Air Oxygen Flow Rate 0 Const Orientation: alert and oriented x3 Extrem Other: Right middle finger dressing intact. No drainage. Objective Labs Result Diagrams: 09/03/19 17:17 09/03/19 17:17 Assessment & Plan Post-op Postoperative Procedures: Procedures Operation Date: 09/04/19 14:45 Actual Procedures Side Surgeon p 3rd Finger pin removal I&D Right Tomas Castle MD stable after I and D of osteomyelitis of right middle finger. No growth on cultures. Will continue on broad-spectrum Rocephin. Discharge home today with 6 weeks IV antibiotics. Quality VTE Deep Vein Thrombosis/Pulmonary Embolism Present on Admission: No
[2019-09-07 08:19] VITALS: PULSE 75; RESP 18; TEMP 36.6; O2SAT 98
[2019-09-07 09:00] VITALS: BP 150/94
[2019-09-07] MEDS: ASPIRIN EC 81 MG TABLET PO (09:06)
[2019-09-07] MEDS: MELOXICAM 7.5 MG TABLET 15 MG PO (09:06)
[2019-09-07] MEDS: PREGABALIN 75 MG CAPSULE 300 MG PO (09:07)
[2019-09-07] MEDS: DOCUSATE 100 MG CAPSULE PO (09:08)
[2019-09-07] MEDS: DULOXETINE 20 MG CAPSULE PO (09:08)
--- NOTE | 2019-09-07 10:51 | PC.NURSE ---
Shift summary: Alert and oriented X3. Dressing to R middle finger C/D/I, RUE elevated as much as possible. Medicated with Percocet + Meloxicam for C/O 8/10 pain in lower back and R middle finger. CMS+, radial pulses+, cap refill <2 sec, fingers pink, warm and 1-2+ non-pitting edema R hand. Showered independently. Lungs CTA, HRR. Afebrile. Plan is to d/c home today w/ arrangements for outpatient antibiotics (just waiting on confirmation from discharge planning/infusion clinic). Patient aware of the same and agreeable. Able to make needs known and calls appropriately. Light and belongings within reach.
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
[2019-09-07] MEDS: CEFTRIAXONE 2 GM/50 ML FROZ.PIGGY IV (11:45)
[2019-09-07 12:00] VITALS: BP 143/96; PULSE 75; RESP 18; TEMP 36.6; O2SAT 96
[2019-09-07 15:20] VITALS: BP 112/68; PULSE 77; RESP 16; TEMP 36.2; O2SAT 97
--- NOTE | 2019-09-07 16:20 | PC.NURSE ---
A&Ox4. Discharge instructions provided to patient. Pt reports she will call her new primary care provider for an appointment. PICC inspected, WNL. Serna.mid finger cdi. Scripts given to patient.
== END 2019-09-07 16:19 | disposition home or self-care (01) | DRG 496 ==
LOC: ED 15:28 → AC 17:29
PROVIDERS: Admitting Provider Orthopaedic Surgery; Emergency Provider Nurse Practitioner Family; PCP Family Medicine; Referring Provider Nurse Practitioner Family; Visit Provider Orthopaedic Surgery
PROC: 0PBT0ZZ Excision of Right Finger Phalanx, Open Approach (ICD-10-PCS; principal; 2019-09-04 14:45)
DX: T84.69XA Infection and inflammatory reaction due to internal fixation device of other site, initial encounter (principal); M86.8X4 Other osteomyelitis, hand; F32.9 Major depressive disorder, single episode, unspecified; G89.4 Chronic pain syndrome; F17.200 Nicotine dependence, unspecified, uncomplicated
CPT/HCPCS: 36415; 36569; 36592; 73120; 73140; 76000; 80048; 80202; 85025; 85651; 86140; 87070; 87075; 87077; 87147; 87205; 94760; 96374; 99284; J0696; J1100; J2405; J2704; J3010

== ENCOUNTER 2019-09-19 10:21 | Emergency (ER) | payer MEDICARE, MEDICAID, SELFPAY ==
[2019-09-19 11:31] VITALS: BP 192/102; PULSE 90; RESP 14; TEMP 36.9; O2SAT 99
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
[2019-09-19] MEDS: KETOROLAC 60 MG/2 ML VIAL IM (12:07)
[2019-09-19] MEDS: LIDOCAINE PATCH 1 EACH ADH..PATCH TOP (12:07)
[2019-09-19] MEDS: CYCLOBENZAPRINE 10 MG TABLET PO (12:07)
[2019-09-19 12:09] VITALS: BP 156/86; PULSE 84; RESP 16; O2SAT 100
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
--- NOTE | 2019-09-20 08:20 | PC.NURSE ---
Pt called yesterday upset, arguing with her mom and saying she wanted to pull out her PICC line and she wasn't going to come for treatment. This RN convinced her that she needed to come to the ED and be seen and that it would not be the best idea to pull her PICC. She agreed to come to the ED and sounded a bit more settled with our conversation. This morning Pt called to say she had returned home to [facility] and would not be coming in for ABX Tx today. Her plan was to go to the ED near her home and have them call the sub assembly team worker Ortho from that ED and discuss how to proceed.. Pt sounded more rested and relaxed. Pt was also encouraged to speak with her PCP in the morning and be seen and discuss a plan of action. Pt stated she would, thanked us for our care and said nandini. Pharmacy was notified as Pt was to have rec'd Abx at 14:00 this afternoon.
== END 2019-09-19 13:00 | disposition left against medical advice (07) ==
PROVIDERS: Emergency Provider Nurse Practitioner Family; PCP Family Medicine
DX: M54.9 Dorsalgia, unspecified (principal)
CPT/HCPCS: 99283; J1885

== ENCOUNTER 2019-09-19 14:53 | Emergency (ER) | payer MEDICARE, MEDICAID, SELFPAY ==
[2019-09-19 15:28] VITALS: BP 162/98; PULSE 95; RESP 16; TEMP 36.4; O2SAT 98
--- NOTE | 2019-09-19 15:52 | PC.NURSE ---
patient walked out of triage room no one can help me I cant keep doing this stopped patient in lobby asking patient if she planned to return for scheduled antibotics tomorrow probably not Asked patient to contract for safety or else police would be sent to do a well person check go ahead and send them patient walked out of department. [place] police department called and informed of concern for patients safety.
== END 2019-09-19 16:28 | disposition left against medical advice (07) ==
PROVIDERS: Emergency Provider Emergency Medicine; PCP Family Medicine
DX: M54.9 Dorsalgia, unspecified (principal)
CPT/HCPCS: 96372; 99281; 99283; J1885

== ENCOUNTER 2019-10-24 09:33 | Emergency (ER) | payer MEDICARE, MEDICAID, SELFPAY ==
[2019-10-24 09:55] VITALS: BP 188/98; PULSE 77; RESP 18; TEMP 36.7; O2SAT 96; BMI 28.7
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
[2019-10-24] MEDS: KETOROLAC 60 MG/2 ML VIAL 30 MG IM (11:31)
[2019-10-24] MEDS: predniSONE 20 MG TABLET 60 MG PO (11:32)
[2019-10-24] MEDS: HYDROCODONE/ACET 5/325 TABLET 1 TAB PO (11:32)
[2019-10-24] MEDS: CYCLOBENZAPRINE 10 MG TABLET PO (11:34)
[2019-10-24 12:05] VITALS: BP 173/102; PULSE 75; O2SAT 100
== END 2019-10-24 12:15 | disposition home or self-care (01) ==
PROVIDERS: Emergency Provider Emergency Medicine; PCP Family Medicine
DX: M47.816 Spondylosis without myelopathy or radiculopathy, lumbar region (principal); M86.9 Osteomyelitis, unspecified; M54.5 Low back pain
CPT/HCPCS: 96365; 96372; 99283; 99284; J0696; J1885

== ENCOUNTER → 2019-11-09 13:00 | Oncology outpatient (ONC) | payer MEDICARE, MEDICAID, SELFPAY ==
[2019-09-08] MEDS: CEFTRIAXONE 2 GM/50 ML FROZ.PIGGY IV (15:16)
[2019-09-08 15:26] VITALS: BP 153/87; PULSE 85; RESP 16; TEMP 37.1; O2SAT 97
[2019-09-09 15:20] VITALS: BP 111/74; PULSE 94; RESP 18; TEMP 37; O2SAT 98
[2019-09-09] MEDS: CEFTRIAXONE 2 GM/50 ML FROZ.PIGGY IV (15:25)
[2019-09-10] MEDS: CEFTRIAXONE 2 GM/50 ML FROZ.PIGGY IV (15:04)
[2019-09-10 15:05] VITALS: BP 114/68; PULSE 93; RESP 18; TEMP 36.8; O2SAT 97
[2019-09-11] MEDS: CEFTRIAXONE 2 GM/50 ML FROZ.PIGGY IV (15:30)
[2019-09-11 15:47] VITALS: BP 130/72; PULSE 76; RESP 20; TEMP 36.7; O2SAT 96
[2019-09-12] MEDS: CEFTRIAXONE 2 GM/50 ML FROZ.PIGGY IV (15:01)
[2019-09-12 16:02] VITALS: BP 131/79; PULSE 84; RESP 18; TEMP 36.4; O2SAT 95
[2019-09-13] MEDS: CEFTRIAXONE 2 GM/50 ML FROZ.PIGGY IV (15:14)
[2019-09-15] MEDS: CEFTRIAXONE 2 GM/50 ML FROZ.PIGGY IV (15:22)
[2019-09-15 15:36] VITALS: BP 113/72; PULSE 95; RESP 15; TEMP 36.8; O2SAT 97
[2019-09-16] MEDS: CEFTRIAXONE 2 GM/50 ML FROZ.PIGGY IV (15:17)
[2019-09-16 15:44] VITALS: BP 96/60; PULSE 78; RESP 16; TEMP 36.9; O2SAT 95
[2019-09-17] MEDS: CEFTRIAXONE 2 GM/50 ML FROZ.PIGGY IV (15:02)
[2019-09-17 15:03] VITALS: BP 121/80; PULSE 95; RESP 18; TEMP 36.6; O2SAT 98
[2019-09-18] MEDS: CEFTRIAXONE 2 GM/50 ML FROZ.PIGGY IV (14:31)
[2019-09-18 14:36] VITALS: BP 125/79; PULSE 110; RESP 17; TEMP 37.2; O2SAT 97
--- NOTE | 2019-09-18 14:37 | PC.NURSE ---
Pt arrived via home. Offers no overt c/o though states back hurts and has to have this infection taken care of before she can have back surgery. Picc patent and intact.
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
--- NOTE | 2019-09-21 15:09 | PC.NURSE ---
NO CONTACT MADE WITH PATIENT: AT PATIENT PHONE NUMBER MOTHER OF PATIENT WAS REACHED WHO STATED SHE ALSO DID NOT KNOW WHERE HER DAUGHTER IS. THIS NURSE ALSO TRIED THE EMERGENCY CONTACT NUMBER AND LEFT MESSAGE REQUESTING RETURN CALL.
--- NOTE | 2019-09-23 15:42 | PC.NURSE ---
NO SHOW; THIS NURSE ATTEMPTED TO REACH PATIENT AT [phone] (NUMBER PROVIDED BY HER MOTHER) AND AT HER EMERGENCY CONTACT [phone]. NO ANSWER AT EITHER PLACE, MESSAGE LEFT AT BOTH FOR PATIENT TO CALL US AT [phone] TO LET US KNOW HER PLAN.
--- NOTE | 2019-10-01 16:24 | PC.NURSE ---
NO SHOW: ON 09/29 THIS NURSE TOOK A CALL FROM PATIENT WHERE SHE WAS SEEKING HELP TO GET HER INFUSIONS NEAR HER IN [facility]. SHE STATED THAT SHE HAD BEEN SEEN IN ER IN [place] AND THEY REDID THE DRESSING ON HER FINGER. SHE STATES THE STITCHES ARE STILL IN BECAUSE SHE MISSED HER FU APT WITH DR SHEPHERD. SHE STATES SKIN AROUND STITCHES IS DRY, COOL TO TOUCH, NO DRAINAGE, NO REDNESS. SHE HAS PICC LINE WHICH HAS NOT HAD DRESSING CHANGE SINCE LAST TIME SHE WAS AT [facility] FOR TREATMENT ON 10/16. SHE STATED SHE COULD NOT MAKE IT UP TO HER TREATMENTS BECAUSE NOW SHE WAS LIVING DOWN IN [place] AND DOES NOT HAVE A RIDE. THIS NURSE SPOKE WITH CELINA AT DR SHEPHERD OFFICE WHO SAID SHE HAD TRIED TO SPEAK WITH PATIENT BUT PATIENT HAD HUNG UP THE PHONE ON HER. CELINA WAS WILLING TO MAKE AN APPT FOR HER FOR THE COMING SATURDAY. I SPOKE AGAIN TO PATIENT EMPHASIZING THAT SHE MUST BE SEEN SOON POSSIBLE AND SHOULD CALL DR SHEPHERD AND THEN CALL ME BACK. I ALSO GAVE HER THE NUMBER OF [facility] IN [place] AND TOLD HER TO CALL AND INQUIRE THERE IF ORDERS COULD BE SENT TO THEM AND THEY COULD CONTINUE INFUSIONS. TODAY I TRIED TO REACH PATIENT SHE HAD NOT CALLED BACK TO TELL ME WHAT HAPPENED. I ALSO CALLED DR PEÑA OFFICE WHERE NURSE STATED PATIENT HAD NOT CALLED AT ALL YESTERDAY. PATIENT AGAIN DID NOT SHOW HERE TODAY. A MESSAGE WAS LEFT REQUESTING PATIENT TO CALL BACK AT HER NR. OF [phone].
--- NOTE | 2019-10-06 15:13 | PC.NURSE ---
ER DISCHARGE SUMMARY AND ORDER FOR CEFTRIAXONE FAXED TO [facility] ON 10/04. TODAY PATIENT CALLED SAYING SHE WENT BY THERE TO INQUIRE AND WAS TOLD SHE WOULD BE CALLED WITH AN APPT TIME. HOWEVER SHE IS CONCERNED ABOUT GETTING HER PICC DRESSING CHANGED. THIS NURSE CALLED AND SPOKE WITH CONNER PATRICK AT DR. SHEPHERD'S OFFICE REQUESTING HER TO TAKEOVER WITH ASSISTING THEIR PATIENT IN THIS MATTER OF IMMEDIATE CONCERN BOTH FOR PIC DRESSING CHANGE AND RESUMING THE ANTIBIOTIC BESIDES THE F/U APPT INCLUDING SUTURE REMOVAL WHICH STILL NEEDS TO BE SCHEDULED. CELINA STATED THAT SHE WOULD TAKE IT OVER FROM HERE AND WILL CONTACT THE PATIENT. I ALSO REQUESTED HER TO VERIFY WITH [facility] THAT THEY RECEIVED THE FAX OF YESTERDAY.
--- NOTE | 2019-10-08 16:58 | PC.NURSE ---
Spoke with Fatemeh at Dr. Aragon office. Per Tamiko pt will need to start IV ABX TITO. Tamiko is sending new order to this copy writer. Pt has been added to schedule Sat, Sat, Sun at 3pm. Tamiko agrees to call and notify pt of scheduled weekend time and instructions.
[2019-10-09 15:13] VITALS: BP 139/101; PULSE 85; RESP 20; TEMP 36.2; O2SAT 100
[2019-10-09] MEDS: CEFTRIAXONE 2 GM/50 ML FROZ.PIGGY IV (15:14)
[2019-10-10] MEDS: CEFTRIAXONE 2 GM/50 ML FROZ.PIGGY IV (15:32)
[2019-10-10 15:54] VITALS: BP 126/86; PULSE 82; RESP 16; TEMP 36.8; O2SAT 98
--- NOTE | 2019-10-10 16:44 | PC.NURSE ---
Pt to room 201 for outpatient antibiotic infusion. PICC line LUE flushes easily with clean and dry dressing. Pt reports dressing changed 10/09/2019. Vital signs as recorded. Pt is tearful while sitting in recliner. States lumbar back pain. Warm blanket provided. Infusion completed and PICC line secured with netting for safe keeping. Pt ambulatory independently and left hospital in stable condition.
[2019-10-11] MEDS: CEFTRIAXONE 2 GM/50 ML FROZ.PIGGY IV (15:03)
[2019-10-11 15:25] VITALS: BP 131/89; PULSE 88; RESP 16; TEMP 37
[2019-10-12 15:30] VITALS: BP 126/84; PULSE 79; RESP 16; TEMP 36.8; O2SAT 92
[2019-10-12] MEDS: CEFTRIAXONE 2 GM/50 ML FROZ.PIGGY IV (15:42)
[2019-10-12 16:02] LABS: Add Manual Diff / Slide Review NO; Basophils Absolute Auto 100 /uL (0-100); Eosinophils Absolute Auto 200 /uL (0-450); Eosinophils Percent Auto 3.1 % (2-4); Hematocrit 35.4 % (36-46); Hemoglobin 11.7 g/dL (12.0-16.0); Lymphocytes Absolute Auto 2100 /uL (1100-4500); Lymphocytes Percent Auto 33.4 % (25-40); Mean Corpuscular HGB Conc 33.1 % (30-36); Mean Corpuscular Hemoglobin 28.3 PG (26-34); Mean Corpuscular Volume 85.5 fL (80-100); Monocytes Absolute Auto 400 /uL (0-900); Neutrophils Absolute Auto 3600 /uL (1500-7000); Neutrophils Percent Auto 56.5 % (50-75); Platelet Count 165 X10^3/uL (150-400); Red Blood Cell Count 4.15 X10^6/uL (4.0-5.2); Red Cell Distribution Width 16.1 % (11.6-14.8); White Blood Cell Count 6.4 X10^3/uL (4.5-11.0)
[2019-10-12 16:13] LABS: BUN Creatinine Ratio 17.8 (6-22); Blood Urea Nitrogen 13 mg/dL (7-17); Calcium 9.2 mg/dL (8.4-10.2); Carbon Dioxide 29 mmol/L (22-32); Chloride 108 mmol/L (98-107); Estimated Glomerular Filt Rate > 60.0 mL/min (>60); Glucose 113 mg/dL (80-110); HEMOLYSIS < 15 (0-50); Potassium 4.2 mmol/L (3.4-5.1); Sodium 138 mmol/L (137-145)
[2019-10-12 16:21] LABS: Erythrocyte Sedimentation Rate 30 MM/HR (0-20)
[2019-10-13] MEDS: CEFTRIAXONE 2 GM/50 ML FROZ.PIGGY IV (15:12)
[2019-10-13 15:16] VITALS: BP 108/58; PULSE 87; RESP 20; TEMP 37; O2SAT 96
[2019-10-14 15:29] VITALS: BP 152/70; PULSE 80; RESP 18; TEMP 36.8; O2SAT 97
[2019-10-14] MEDS: CEFTRIAXONE 2 GM/50 ML FROZ.PIGGY IV (15:30)
[2019-10-15] MEDS: CEFTRIAXONE 2 GM/50 ML FROZ.PIGGY IV (08:39)
[2019-10-15 08:56] VITALS: BP 127/81; PULSE 82; RESP 18; TEMP 36.9; O2SAT 94
[2019-10-16] MEDS: CEFTRIAXONE 2 GM/50 ML FROZ.PIGGY IV (08:53)
--- NOTE | 2019-10-16 09:32 | PC.NURSE ---
Outpatient infusion 10/16/2019 Pt arrived @ 0830 for Abx infusion, tearful. Wincing in pain with getting in and out of chair. Reports back pain is significant, and is planning surgery later this month. Warm blanket provided for comfort. Infusion to LUE PICC without incident. This RN walked Pt to car, after refusal of w/c. Safely to private vehicle.
[2019-10-17] MEDS: CEFTRIAXONE 2 GM/50 ML FROZ.PIGGY IV (08:41)
[2019-10-17 08:58] VITALS: BP 132/82; PULSE 75; RESP 20; TEMP 36.6; O2SAT 98
--- NOTE | 2019-10-17 09:00 | PC.NURSE ---
I feel better than yesterday. States PT. IV ABX given as ordered.
[2019-10-18] MEDS: CEFTRIAXONE 2 GM/50 ML FROZ.PIGGY IV (08:40)
[2019-10-18 08:42] VITALS: BP 155/90; PULSE 80; RESP 20; TEMP 36.4; O2SAT 97
--- NOTE | 2019-10-18 08:47 | PC.NURSE ---
Pt arrived via home offers no overt c/o though a bit tired and achy from back issues.PICC accessed per protocal.
[2019-10-19] MEDS: CEFTRIAXONE 2 GM/50 ML FROZ.PIGGY IV (08:46)
[2019-10-19 08:54] VITALS: BP 136/88; PULSE 73; RESP 16; TEMP 36.7; O2SAT 97
[2019-10-20] MEDS: CEFTRIAXONE 2 GM/50 ML FROZ.PIGGY IV (09:00)
[2019-10-20 09:03] VITALS: BP 148/91; PULSE 69; RESP 16; TEMP 36.9; O2SAT 98
[2019-10-21] MEDS: CEFTRIAXONE 2 GM/50 ML FROZ.PIGGY IV (08:56)
[2019-10-21 09:02] VITALS: BP 131/83; PULSE 79; RESP 18; TEMP 37.1; O2SAT 99
[2019-10-22 09:08] VITALS: BP 144/92; PULSE 77; RESP 16; TEMP 36.4; O2SAT 99
[2019-10-22] MEDS: CEFTRIAXONE 2 GM/50 ML FROZ.PIGGY IV (09:08)
--- NOTE | 2019-10-22 09:16 | PC.NURSE ---
Pt seen in clinic for IV ABX. Pt tearful reports pain in lower back I can't even walk without it hurting. Per pt she is caring for her mother and has been doing a lot more than she normally would do lifting and bending. Pt reports steroids have helped in the past. According to pt's medical records she was seen in ER r/t back pain in Aug and left AMA after receiving Toradol, Flexeril and lido patch. Spoke with Domonique at Dr. Aragon office and relayed pt's pain. Per Domonique [place] is not in today but she will message him and see what he would like to do. Domonique agrees to contact pt with update and plan. Pt aware.
[2019-10-22 09:21] LABS: Add Manual Diff / Slide Review NO; Basophils Absolute Auto 100 /uL (0-100); Basophils Percent Auto 1.2 % (0-2); Eosinophils Absolute Auto 300 /uL (0-450); Eosinophils Percent Auto 5.4 % (2-4); Hematocrit 35.4 % (36-46); Hemoglobin 11.6 g/dL (12.0-16.0); Lymphocytes Absolute Auto 1600 /uL (1100-4500); Lymphocytes Percent Auto 29.1 % (25-40); Mean Corpuscular HGB Conc 32.8 % (30-36); Mean Corpuscular Hemoglobin 28.2 PG (26-34); Mean Corpuscular Volume 85.8 fL (80-100); Monocytes Absolute Auto 500 /uL (0-900); Monocytes Percent Auto 8.5 % (3-14); Neutrophils Absolute Auto 3000 /uL (1500-7000); Neutrophils Percent Auto 55.8 % (50-75); Platelet Count 204 X10^3/uL (150-400); Red Blood Cell Count 4.12 X10^6/uL (4.0-5.2); Red Cell Distribution Width 16.3 % (11.6-14.8); White Blood Cell Count 5.4 X10^3/uL (4.5-11.0)
[2019-10-22 09:35] LABS: Alanine Aminotransferase 8 IU/L (<35); Albumin 3.9 g/dL (3.5-5.0); Albumin Globulin Ratio 1.2 (1.0-2.8); Alkaline Phosphatase 68 U/L (38-126); Aspartate Aminotransferase 19 IU/L (14-36); BUN Creatinine Ratio 19.4 (6-22); Bilirubin Total 0.3 mg/dL (0.2-1.3); Blood Urea Nitrogen 13 mg/dL (7-17); Carbon Dioxide 24 mmol/L (22-32); Chloride 110 mmol/L (98-107); Estimated Glomerular Filt Rate > 60.0 mL/min (>60); Globulin 3.3 g/dL (1.7-4.1); Glucose 100 mg/dL (80-110); HEMOLYSIS < 15 (0-50); Sodium 141 mmol/L (137-145); Total Protein 7.2 g/dL (6.3-8.2)
[2019-10-22 10:02] LABS: Erythrocyte Sedimentation Rate 25 MM/HR (0-20)
[2019-10-23 08:48] VITALS: BP 145/94; PULSE 97; RESP 16; TEMP 36.7; O2SAT 99
[2019-10-23] MEDS: CEFTRIAXONE 2 GM/50 ML FROZ.PIGGY IV (08:49)
--- NOTE | 2019-10-23 09:15 | PC.NURSE ---
PATIENT VERY OPEN AND SHARING ABOUT HER PAST PERSONAL EXPERIENCES IN HER LIFE. STATES HER PAIN IS BETTER TODAY, BUT YESTERDAY SHE COULD BARELY WALK DUE TO PAIN. PROVIDED APPLE JUICE AND WATER PER HER REQUEST. PICC LINE DRSG CDI. FLUSHES AND DRAWS EASILY.
[2019-10-24 08:39] VITALS: BP 156/111; PULSE 90; RESP 24; TEMP 36.7; O2SAT 98
[2019-10-24] MEDS: CEFTRIAXONE 2 GM/50 ML FROZ.PIGGY IV (08:39)
--- NOTE | 2019-10-24 09:41 | PC.NURSE ---
Patient tearful on arrival for infusion, walked self into room. Reports pain to back and especially tailbone. Declined offers of warm blanket, ice pack, or to be taken to ER. Tolerated infusion of antibiotic via PICC line without issue. Upon abx completion requested to be taken to ER. Taken via wheelchair to ER check-in desk by staff member.
[2019-10-25] MEDS: CEFTRIAXONE 2 GM/50 ML FROZ.PIGGY IV (08:43)
[2019-10-25 08:45] VITALS: BP 159/109; PULSE 91; RESP 20; TEMP 36.6; O2SAT 99
[2019-10-26] MEDS: CEFTRIAXONE 2 GM/50 ML FROZ.PIGGY IV (08:51)
[2019-10-26 08:54] VITALS: BP 148/89; PULSE 80; RESP 16; TEMP 37; O2SAT 99
[2019-10-27] MEDS: CEFTRIAXONE 2 GM/50 ML FROZ.PIGGY IV (08:58)
[2019-10-27 09:07] VITALS: BP 149/102; PULSE 74; RESP 149; TEMP 36.7; O2SAT 98
[2019-10-28] MEDS: CEFTRIAXONE 2 GM/50 ML FROZ.PIGGY IV (08:51)
[2019-10-28 09:08] VITALS: BP 154/97; PULSE 80; RESP 16; TEMP 36.8; O2SAT 98
[2019-10-29] MEDS: CEFTRIAXONE 2 GM/50 ML FROZ.PIGGY IV (08:47)
[2019-10-29 08:48] VITALS: BP 162/95; PULSE 75; RESP 16; TEMP 36.7; O2SAT 98
[2019-10-29 09:45] LABS: Add Manual Diff / Slide Review NO; Basophils Absolute Auto 100 /uL (0-100); Eosinophils Absolute Auto 200 /uL (0-450); Hematocrit 35.9 % (36-46); Hemoglobin 11.8 g/dL (12.0-16.0); Lymphocytes Absolute Auto 4000 /uL (1100-4500); Lymphocytes Percent Auto 52.5 % (25-40); Mean Corpuscular HGB Conc 32.9 % (30-36); Mean Corpuscular Hemoglobin 27.8 PG (26-34); Mean Corpuscular Volume 84.6 fL (80-100); Monocytes Absolute Auto 600 /uL (0-900); Monocytes Percent Auto 8.4 % (3-14); Neutrophils Absolute Auto 2800 /uL (1500-7000); Neutrophils Percent Auto 36.1 % (50-75); Platelet Count 219 X10^3/uL (150-400); Red Blood Cell Count 4.25 X10^6/uL (4.0-5.2); White Blood Cell Count 7.6 X10^3/uL (4.5-11.0)
[2019-10-29 10:00] LABS: C-Reactive Protein Quant < 0.5 mg/dL (<1.0)
[2019-10-29 10:03] LABS: Erythrocyte Sedimentation Rate 17 MM/HR (0-20)
[2019-10-30 08:30] VITALS: BP 164/91; PULSE 91; RESP 16; TEMP 36.6; O2SAT 99
[2019-10-30] MEDS: CEFTRIAXONE 2 GM/50 ML FROZ.PIGGY IV (08:36)
--- NOTE | 2019-10-30 09:11 | PC.NURSE ---
Day Shift-OP Infusion Pt arrived to unit up ad rosa at 0828 into room 201. Pt has her own water bottle. Call light within reach, Pt stated she had a 5 day course of steroids and then her pain to her back is mild to moderate, tolerable. Pt states it was good to have some relief for a little while. MICA PICC flushes well with brisk blood return, Tolerated IV antibiotic infusion well without issue. NS flush to MICA PICC per protocol. Pt left unit with all belongings at 0915 in no distress up ad rosa.
[2019-10-31] MEDS: CEFTRIAXONE 2 GM/50 ML FROZ.PIGGY IV (08:34)
[2019-10-31 08:35] VITALS: BP 157/98; PULSE 89; RESP 17; TEMP 36.6; O2SAT 98
[2019-11-01] MEDS: CEFTRIAXONE 2 GM/50 ML FROZ.PIGGY IV (08:43)
[2019-11-01 08:44] VITALS: BP 136/85; PULSE 94; RESP 16; TEMP 36.6; O2SAT 97
--- NOTE | 2019-11-01 09:43 | PC.NURSE ---
Day shift: Tolerated IV antibiotics well. VS WNL. PICC line patent and dressing CDI. Pt excited to only have 4 more IV doses of antibiotics.
[2019-11-02 08:57] VITALS: BP 122/77; PULSE 98; RESP 15; TEMP 36.9; O2SAT 100
[2019-11-02] MEDS: CEFTRIAXONE 2 GM/50 ML FROZ.PIGGY IV (08:58)
[2019-11-03] MEDS: CEFTRIAXONE 2 GM/50 ML FROZ.PIGGY IV (08:37)
[2019-11-03 08:44] VITALS: BP 130/90; PULSE 91; RESP 16; TEMP 36.8; O2SAT 100
[2019-11-04] MEDS: CEFTRIAXONE 2 GM/50 ML FROZ.PIGGY IV (08:31)
[2019-11-04 08:38] VITALS: BP 138/92; PULSE 80; RESP 16; TEMP 36.9; O2SAT 100
[2019-11-05 08:42] VITALS: BP 140/97; PULSE 92; RESP 18; TEMP 36.8; O2SAT 99
[2019-11-05] MEDS: CEFTRIAXONE 2 GM/50 ML FROZ.PIGGY IV (08:51)
[2019-11-05 08:56] LABS: Add Manual Diff / Slide Review NO; Basophils Absolute Auto 100 /uL (0-100); Basophils Percent Auto 1.4 % (0-2); Eosinophils Absolute Auto 200 /uL (0-450); Eosinophils Percent Auto 3.4 % (2-4); Hematocrit 33.5 % (36-46); Hemoglobin 11.2 g/dL (12.0-16.0); Lymphocytes Absolute Auto 2100 /uL (1100-4500); Lymphocytes Percent Auto 31.6 % (25-40); Mean Corpuscular HGB Conc 33.5 % (30-36); Mean Corpuscular Hemoglobin 28.4 PG (26-34); Mean Corpuscular Volume 84.9 fL (80-100); Monocytes Absolute Auto 600 /uL (0-900); Monocytes Percent Auto 9.4 % (3-14); Neutrophils Absolute Auto 3600 /uL (1500-7000); Neutrophils Percent Auto 54.2 % (50-75); Platelet Count 200 X10^3/uL (150-400); Red Blood Cell Count 3.95 X10^6/uL (4.0-5.2); Red Cell Distribution Width 16.3 % (11.6-14.8); White Blood Cell Count 6.6 X10^3/uL (4.5-11.0)
[2019-11-05 09:05] LABS: Alanine Aminotransferase 14 IU/L (<35); Albumin 3.9 g/dL (3.5-5.0); Albumin Globulin Ratio 1.1 (1.0-2.8); Alkaline Phosphatase 64 U/L (38-126); Aspartate Aminotransferase 20 IU/L (14-36); BUN Creatinine Ratio 30.3 (6-22); Bilirubin Total 0.3 mg/dL (0.2-1.3); Blood Urea Nitrogen 20 mg/dL (7-17); Carbon Dioxide 21 mmol/L (22-32); Chloride 109 mmol/L (98-107); Estimated Glomerular Filt Rate > 60.0 mL/min (>60); Globulin 3.4 g/dL (1.7-4.1); Glucose 94 mg/dL (80-110); HEMOLYSIS 23 (0-50); Potassium 4.3 mmol/L (3.4-5.1); Sodium 137 mmol/L (137-145); Total Protein 7.3 g/dL (6.3-8.2)
[2019-11-05 09:12] LABS: Erythrocyte Sedimentation Rate 31 MM/HR (0-20)
[2019-11-05 09:16] LABS: C-Reactive Protein Quant < 0.5 mg/dL (<1.0)
[2019-11-09 12:55] VITALS: BP 146/92; PULSE 79; RESP 16; TEMP 37.1; O2SAT 97
[2019-11-09] MEDS: NEOMYCIN/POLYMYXIN/BACITRA UD OINT 1 EACH TOP (13:18)
== END ==
PROVIDERS: PCP Family Medicine; Referring Provider Orthopaedic Surgery; Visit Provider Orthopaedic Surgery
DX: Z45.2 Encounter for adjustment and management of vascular access device (principal); M86.9 Osteomyelitis, unspecified
CPT/HCPCS: 36592; 80048; 80053; 85025; 85651; 86140; 96365; 96366; 96413; 96523; J0696; J1642